=== PATIENT | female | born 1945 | race Caucasian/White ===

== ENCOUNTER → 2017-02-11 | Outpatient (CLI) | payer OTHER | LOC: FIMAGING 07:44 | PROVIDERS: ATTEND Internal Medicine Hematology & Oncology | DX: Z12.31 Encounter for screening mammogram for malignant neoplasm of breast (principal); Z85.3 Personal history of malignant neoplasm of breast | CPT/HCPCS: G0202 ==

== ENCOUNTER 2017-12-13 09:45 | Emergency (ER) | payer OTHER ==
--- NOTE | 2017-12-13 10:57 | EDPHY ---
H & P Stated Complaint: constipation abd pain - Personal History Current Tetanus/Diphtheria Vaccine: Unsure Current Tetanus Diphtheria and Acellular Pertussis (TDAP): Unsure - Medical/Surgical History Hx Asthma: No Hx Chronic Respiratory Disease: No Hx Diabetes: No Hx Cardiac Disease: No Hx Renal Disease: No Hx Cirrhosis: No Hx Alcoholism: No Hx HIV/AIDS: No Hx Splenectomy or Spleen Trauma: No Other PMH: ostoarthritis , hypothyroid, psoriasis, breast CA lumpectomy, radiation, chemo, gallbladder removed 2009, - Social History Smoking Status: Never smoked Time Seen by Provider: 12/13/17 10:23 HPI/ROS: CHIEF COMPLAINT: Abdominal pain x6 months HISTORY OF PRESENT ILLNESS: 72-year-old female arrives via private vehicle complaining of 6 months of multiple symptoms. She describes recurrent episodes of constipation, recurrent episodes of bilateral upper abdominal pain with intermittent radiation to her right shoulder and scapula, pleuritic lower chest pain and upper abdominal pain. She has seen her PCP Dr. Deanna Trotter for this and has been seen by GI of the [facility] as recently as 1 week ago for similar complaints. She is concerned about possible cardiac pathology, possible pulmonary pathology. She denies: Fever, chills, back or flank pain, peripheral paresthesia, weakness , numbness, incontinence, chest pain, dyspnea urinary abnormality, melena hematochezia, nausea or vomiting, syncope or near syncope. PRIMARY CARE PROVIDER: Dr. Deanna Salter REVIEW OF SYSTEMS: A ten point review of systems was performed and is negative with the exception of the items mentioned in the HPI PAST MEDICAL & SURGICAL HISTORY: Lumpectomy, secondary to history of breast cancer 20 years ago. Cholecystectomy. SOCIAL HISTORY: nonsmoker PHYSICAL EXAM (Prior to examination, patient consented to physical exam, hands were washed and my usual and customary physical exam procedures followed) 1) GENERAL: Well-developed, well-nourished, alert and oriented. Appears to be in no acute distress. 2) HEAD: Normocephalic, atraumatic 3) HEENT: Pupils equal, round, reactive to light bilaterally. Sclera anicteric. Nasopharynx, oropharynx, clear, no lesions. Ears bilaterally with normal tympanic membranes. 4) NECK: Full range of motion, no meningeal signs. 5) LUNGS: Clear auscultation bilaterally, no wheezes, no rhonchi, no retractions. 6) HEART: Regular rate and rhythm, no murmur, no heave, no gallop. 7) ABDOMEN: No guarding, tender to palpation bilateral upper quadrants, no pulsatile or palpable mass, negative McBurney's, negative Ca's, negative Rovsing's, negative peritoneal sign, 8) MUSCULOSKELETAL: Moving all extremities, no focal areas of tenderness, no obvious trauma. No peripheral edema or discoloration. 9) BACK: No CVA tenderness, no midline vertebral tenderness, no fluctuance, no step-off, no obvious trauma, no visual or palpable abnormality. Patella and Achilles reflexes are intact to bilateral strength 5/5. No rash no lesions no vesicles. Full equal sensation along the thoracic vertebrae 10) SKIN: No rash, no petechiae. 11) Psychiatric: Patient is oriented X 3, there is no agitation. DIFFERENTIAL DIAGNOSIS: In no particular order, including but not limited to biliary colic, cholecystitis, peptic ulcer disease, pancreatitis, and gastroenteritis. This is a partial list of diagnoses considered. These considerations are based on history, physical exam, past history and reassessment. (Ozzy Lugo) Constitutional: Initial Vital Signs Temperature (C) 36.8 C 12/13/17 10:08 Heart Rate 97 12/13/17 10:08 Respiratory Rate 16 12/13/17 10:08 Blood Pressure 173/114 H 12/13/17 10:08 O2 Sat (%) 94 12/13/17 10:08 O2 Delivery Mode Room Air Allergies/Adverse Reactions: No Known Allergies Allergy (Unverified 12/13/17 10:05) Home Medications: Medication Instructions Recorded Cholecalciferol Vit D3 [Vitamin D3 2,000 units PO DAILY 11/23/14 (*)] Herbals/Supplements -Info Only 1 ea PO DAILY 11/23/14 Levothyroxine [Synthroid 125 mcg 125 mcg PO DAILY06 11/23/14 (*)] Multivitamins [Multivitamin (*)] 1 each PO DAILY 11/23/14 [place]-3 Fatty Acids [Fish Oil 1000 1,000 mg PO DAILY 11/23/14 mg (*)] Potassium Chloride [K-Tab ER] 20 meq PO DAILY 11/23/14 traZODone [traZODone 150MG (*)] 150 mg PO HS 11/23/14 Acetaminophen [Tylenol 325mg (*)] 325 - 650 mg PO Q6 PRN #60 tab 12/14/14 Docusate Sodium [Colace 100 MG (*)] 100 mg PO BID #60 cap 12/14/14 Miralax 17 gm (*) 12/13/17 Medical Decision Making - Diagnostics EKG Interpretation: 12 lead EKG is interpreted in Trace master View by emergency department physician. (Beatris Carver) Imaging Results: Images reviewed myself (Ozzy Lugo) ED Course/Re-evaluation: 10:55 a.m.: Will obtain diagnostic studies on this patient including LFTs, lipase, troponin, EKG, D-dimer, chest x-ray, more than likely CT imaging of the abdomen and pelvis. Care of patient under supervision of secondary Supervising physician Dr Carver with whom I discussed case. 11:30 a.m.: Patient describes pleuritic chest pain, has elevated D-dimer of 1.98. Recommended CT imaging of the chest. Indications risks benefits discussed with patient and she consents. Patient was re-evaluated with serial examinations. Unfortunately, results of imaging showing multilevel vertebral metastatic disease with pathologic fracture at the T11 level with no definitive spinal impingement, no neurologic deficits on examination. She is also noted to have scapular metastatic lesions. No pulmonary embolus. No intra-abdominal pathology. I discussed this with the patient and her , had a lengthy discussion with the 2 of them. The news of the metastatic disease was surprising and upsetting for the patient to hear. Subsequently consulted with on-call oncology Dr. Armijo. Today is Thursday of the weekend. Dr. Armijo recommended patient follow up in the office this week. Specifically regarding the patient's T11 pathologic fracture, there are no neurologic deficits noted on examination. I do not think that emergent MRI is indicated today ; however, this will more than likely need to happen on outpatient basis. Definitely in the meantime I had a lengthy discussion with the patient if she develops neurologic deficits, weakness, incontinence, she needs to return to the ER immediately for re- evaluation. Recommended no heavy lifting, pushing pulling and similar. She feels comfortable being discharged. All questions and concerns addressed by myself. (Ozzy Lugo) The patient was evaluated and managed by the physician educational/development assistant. I have reviewed this chart and I agree with the findings and plan of care as documented , as indicated by my signature. I am the secondary supervising physician. I was made aware of the patient's condition and the result of her evaluation throughout her stay in the emergency department. The physician's educational/development assistant, Torsten nunez, had established a good rapport with the patient and I am comfortable with him relaying the news about her metastatic disease to the patient and her . 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 Referrals: Deirdre Godinez MD [Medical Doctor] - 2-3 days, call for appt.
--- NOTE | 2017-12-13 11:08 | CPEKG ---
Heart Rate: 67 RR Interval: 896 P-R Interval: 156 QRSD Interval: 76 QT Interval: 412 QTC Interval: 435 P [place]: 52 QRS [place]: -26 T Wave [place]: 44 EKG Severity - BORDERLINE ECG - EKG Impression: SINUS RHYTHM EKG Impression: BORDERLINE LEFT AXIS DEVIATION EKG Impression: BORDERLINE R WAVE PROGRESSION, ANTERIOR LEADS Electronically Signed By: Beatris Carver 13-Dec-2017 16:43:20
[2017-12-13 11:10] LABS: PLATELET COUNT 239 10^3/uL (150-400)
[2017-12-13] MEDS ORDERED: IOPAMIDOL (ISOVUE 370) 100 ML BTL IV ONE (11:38)
[2017-12-13 14:24] VITALS: BP 143/67
== END 2017-12-13 14:23 | disposition home or self-care (01) ==
DX: C72.0 Malignant neoplasm of spinal cord (principal); C40.00 Malignant neoplasm of scapula and long bones of unspecified upper limb; Z85.3 Personal history of malignant neoplasm of breast
CPT/HCPCS: 71046; 71275; 74177; 93005; 99285; Q9967

== ENCOUNTER 2017-12-15 19:31 | Inpatient (IN) | payer OTHER ==
--- NOTE | 2017-12-15 20:01 | EDPHY ---
HPI/HX/ROS/PE/MDM Narrative: CHIEF COMPLAINT: Metastatic cancer to spine HPI: This patient is a 72 year old female with history of breast cancer with known bone metastases. She presents at the request of her oncologist, Dr. Walton. MRI thoracic spine this evening showed cord compression at T10 related to an expanded vertebral body and right pedicle. Dr. Walton requests IV dexamethasone for this patient as well as admission and a consult with neurosurgery tomorrow. The patient was evaluated in this emergency department two days ago, 12/13/17, for multiple complaints including abdominal, chest, and shoulder pain, and was discovered at that time to have metastatic disease. Currently, the patient feels anxious. She denies any neurologic deficits. She has had persistent upper abdominal pain, back pain, and pleuritic pain and generally takes tramadol for this. She has no further complaints at this time and is aware of the plan for admission. REVIEW OF SYSTEMS: Aside from elements discussed in the HPI, a comprehensive 10-point review of systems was reviewed and is negative. PMH: History of breast cancer 20 years ago. SOCIAL HISTORY: . Works as a nanny. Oncologist: Dr. Godinez. PHYSICAL EXAM: General:Patient is alert, in no acute distress. ENT:Eyes are normal to inspection. ENT inspection normal. Neck: Normal inspection. Full range of motion. Respiratory:No respiratory distress. Breath sounds normal bilaterally. Cardiovascular: Regular rate and rhythm. Strong peripheral pulses. Normal cap refill. Abdomen:The abdomen is nontender to palpation. There are no peritoneal signs. There are normal bowel sounds. Back: Normal to inspection. No tenderness to palpation. Skin: Normal color. No rash. Warm and dry. Extremities: Normal appearance. Full range of motion. Neuro: Oriented x3. Normal motor function. Normal sensory function. ED Course: 72 y/o female with history of metastatic breast cancer presents for admission and steroid administration. She is neurologically intact on exam and has no complaints other than pain. MRI thoracic spine read by Dr. Sousa this evening shows cord compression at T10 related to an expanded vertebral body and right pedicle. Plan for consult with neurosurgery, IV steroids, and admission. Plan for labs including CBC, chemistries. 20:[address] Chan, neurosurgeon. He will consult. Plan to administer 10mg IV Decadron and 50mg PO Tramadol for symptom relief. Administered 1L IV NS. 21:[address] Davidson, hospitalist. He accepts admission for spine metastasis. - Data Points Laboratory Results: Laboratory Results 12/15/17 20:15 12/15/17 20:15 12/15/17 12/15/17 20:15 20:15 WBC 5.96 10^3/uL 10^3/uL (3.80-9.50) RBC 4.47 10^6/uL 10^6/uL (4.18-5.33) Hgb 13.1 g/dL g/dL (12.6-16.3) Hct 37.8 % L % (38.0-47.0) MCV 84.6 fL fL (81.5-99.8) MCH 29.3 pg pg (27.9-34.1) MCHC 34.7 g/dL g/dL (32.4-36.7) RDW 13.1 % % (11.5-15.2) Plt Count 226 10^3/uL 10^3/uL (150-400) MPV 9.4 fL fL (8.7-11.7) Neut % (Auto) 45.0 % % (39.3-74.2) Lymph % (Auto) 34.2 % % (15.0-45.0) [place] % (Auto) 15.3 % H % (4.5-13.0) Eos % (Auto) 4.5 % % (0.6-7.6) Baso % (Auto) 0.8 % % (0.3-1.7) Nucleat RBC Rel Count 0.0 % % (0.0-0.2) Absolute Neuts (auto) 2.68 10^3/uL 10^3/uL (1.70-6.50) Absolute Lymphs (auto) 2.04 10^3/uL 10^3/uL (1.00-3.00) Absolute Monos (auto) 0.91 10^3/uL H 10^3/uL (0.30-0.80) Absolute Eos (auto) 0.27 10^3/uL 10^3/uL (0.03-0.40) Absolute Basos (auto) 0.05 10^3/uL 10^3/uL (0.02-0.10) Absolute Nucleated RBC 0.00 10^3/uL 10^3/uL (0-0.01) Immature Gran % 0.2 % % (0.0-1.1) Immature Gran # 0.01 10^3/uL 10^3/uL (0.00-0.10) Sodium 138 mEq/L mEq/L (135-145) Potassium 3.6 mEq/L mEq/L (3.3-5.0) Chloride 98 mEq/L mEq/L (97-110) Carbon Dioxide 27 mEq/l mEq/l (22-31) Anion Gap 13 mEq/L mEq/L (8-16) BUN 23 mg/dL mg/dL (7-23) Creatinine 0.9 mg/dL mg/dL (0.6-1.0) Estimated GFR > 60 Glucose 98 mg/dL mg/dL (70-100) Calcium 10.4 mg/dL mg/dL (8.5-10.4) Medications Given: Discontinued Medications Dexamethasone (Decadron Injection) 10 mg IVP EDNOW ONE Stop: 12/15/17 20:16 Last Admin: 12/15/17 20:24 Dose: 10 mg Sodium Chloride (Ns) 1,000 mls @ 0 mls/hr IV EDNOW ONE; Wide Open PRN Reason: Protocol Stop: 12/15/17 20:29 Last Admin: 12/15/17 20:33 Dose: 1,000 mls Tramadol HCl (Ultram) 50 mg PO EDNOW ONE Stop: 12/15/17 20:29 Last Admin: 12/15/17 20:34 Dose: 50 mg General Time Seen by Provider: 12/15/17 19:55 Initial Vital Signs: Initial Vital Signs Temperature (C) 36.8 C 12/15/17 19:40 Heart Rate 77 12/15/17 19:40 Respiratory Rate 20 12/15/17 19:40 Blood Pressure 140/11 H 12/15/17 19:40 O2 Sat (%) 93 12/15/17 19:40 O2 Delivery Mode Room Air Allergies/Adverse Reactions: No Known Allergies Allergy (Unverified 12/13/17 10:05) Home Medications: Medication Instructions Recorded Cholecalciferol Vit D3 [Vitamin D3 2,000 units PO DAILY 11/23/14 (*)] Herbals/Supplements -Info Only 1 ea PO DAILY 11/23/14 Levothyroxine [Synthroid 125 mcg 125 mcg PO DAILY06 11/23/14 (*)] [place]-3 Fatty Acids [Fish Oil 1000 1,000 mg PO DAILY 11/23/14 mg (*)] Potassium Chloride [K-Tab ER] 20 meq PO DAILY 11/23/14 traZODone [traZODone 150MG (*)] 150 mg PO HS 11/23/14 Polyethylene Glycol 3350 [Miralax 17 gm PO DAILY PRN 12/13/17 17 gm (*)] Naproxen Sodium [Aleve 220 MG (*)] 440 mg PO BID 12/15/17 Tramadol HCl 50 mg PO Q6 PRN 12/15/17 Departure - Departure Disposition: [facility] Clinical Impression: Spine metastasis Condition: Good Report Scribed for: Dom Mcallister Report Scribed by: Natividad Perkins Date of Report: 12/15/17 Time of Report: 20:03 Physician Review and Approval Statement: Portions of this note were transcribed by an ED scribe. I personally performed the history, physical exam, and medical decision making; and confirm the accuracy of the information in the transcribed note.
[2017-12-15] MEDS ORDERED: DEXAMETHASONE 10 MG/ML VIAL IVP ONE (20:15)
[2017-12-15] MEDS ORDERED: traMADol 50 MG TAB PO ONE (20:28)
[2017-12-15] MEDS ORDERED: NS 1,000 ML IV ONE (20:28)
[2017-12-15 20:37] LABS: PLATELET COUNT 226 10^3/uL (150-400)
[2017-12-15] MEDS ORDERED: LORazepam 0.5 MG TAB PO PRN (22:34)
[2017-12-15] MEDS ORDERED: HYDROCODONE/APAP 5/325 TAB PO PRN (22:34)
[2017-12-15] MEDS ORDERED: diphenhydrAMINE 25 MG CAP PO PRN (22:34)
[2017-12-15] MEDS ORDERED: ONDANSETRON 4 MG/2 ML VIAL IVP PRN (22:34)
[2017-12-15] MEDS ORDERED: NS 1,000 ML IV SCH (22:45)
[2017-12-16] MEDS: DEXAMETHASONE 4 MG/ML VIAL IVP SCH ×3 (01:48→14:37)
[2017-12-16] MEDS: traMADol 50 MG TAB PO PRN ×2 (02:42→08:28)
--- NOTE | 2017-12-16 03:18 | GHP ---
[f rep st] HISTORY AND PHYSICAL DATE OF ADMISSION: 12/15/2017 SOURCE: Patient provides history. Appears reliable. EMR was reviewed and case discussed with miguel fields hospitalist. CHIEF COMPLAINT: Back pain and metastatic breast cancer. HISTORY OF PRESENT ILLNESS: This is a very pleasant 72-year-old female with a past medical history s ignificant for hypothyroidism, insomnia, and a previously remote history of breast cancer who was in remission for 20 years, who presents to the emergency department for the second time this week per he r oncologist for finding of a T10 cord compression edema. Patient was recently seen in the emergency department a few days ago with complaints of increasing abdominal pain and diffuse bony pain. Regina wei was found to have metastatic disease and had follow up with her oncologist today. She underwent M RI of thoracic spine with findings concerning for cord compression T10. Patient denies any numbness, tingling. No focal deficits. She denies any fevers, chills, chest pain, palpitations, cough, short ness of breath. She continues to have abdominal bloating and constipation issues but reports that he r pain is controlled at this time. She did receive a dose of tramadol in the emergency department an d reports that this did alleviate some of her pain. She is hesitant to consider use of large doses o f narcotics but reports that she is relatively comfortable with the dose of tramadol and has not had any neurologic symptoms. REVIEW OF SYSTEMS: Negative except as noted above. ALLERGIES: No known drug allergies. HOME MEDICATIONS: As per EMR, trazodone 50 mg p.o. at at bedtime, potassium chloride 20 mEq p.o. isaiah ly, fish oil 1000 mg p.o. daily, multivitamin 1 tab p.o. daily, MiraLAX 17 g p.r.n., levothyroxine 12 5 mg p.o. daily, docusate 100 mg p.o. b.i.d., vitamin D3 2000 units p.o. daily, Tylenol p.r.n., probi otic p.o. daily. PAST MEDICAL HISTORY: Significant for remote history of breast cancer, status post a lumpectomy 20 y ears ago, hypothyroidism, insomnia. PAST SURGICAL HISTORY: Lumpectomy, cholecystectomy, left total hip arthroplasty 2014. FAMILY HISTORY: Mother and father with history of hypertension. Father at a young age 57 a fter his fifth DE. First was at age 37. Mother lived to 80 years old with suspected lung cancer, an d she declined any further eval. Sister with history of ovarian cancer. Paternal aunt with breast c ancer. Patient with 3 children, 3 grandchildren, all of whom are healthy. SOCIAL HISTORY: Patient is . She lives with her . She is currently employed as a [employer]. She drinks 1 to 2 glasses of wine per week. Denies any illicit drug use. No marijuana use. CODE STATUS: Full but patient would not want to be on prolonged life support. PHYSICAL EXAMINATION: VITAL SIGNS: Upon arrival to the emergency department, blood pressure 140/101 , heart rate 77, respiratory rate 20, O2 sats 93% on room air, temperature 36.8. Current vitals avai lable: Blood pressure 116/87, heart rate 78, respiratory rate 16, O2 saturation 94% on room air, tem perature 37. GENERAL: No acute distress. Very pleasant, obese female is lying quietly in bed resti ng. HEAD: Normocephalic, atraumatic. EYES: Extraocular muscles are intact. Pupils equal, round, react to light bilaterally and symmetric. No scleral icterus or conjunctival injection. ENT: Mucou s membranes appear moist. No oropharyngeal erythema or exudates. Dentition intact. NECK: Supple. Trachea midline. CV: Regular rate and rhythm, slightly distant heart sounds. No murmurs, rubs, or gallops appreciated. No chest wall tenderness to palpation. RESPIRATORY: Lungs clear to auscultat ion bilaterally. No wheezes, rales, or rhonchi appreciated. Slightly diminished at the bases. ABDO MEN: Obese, soft, but full. Nondistended. Positive bowel sounds. No tenderness to palpation. No rebound, guarding, or masses appreciated. : No suprapubic tenderness to palpation. No [place] cath eter in place. EXTREMITIES: Patient without any cyanosis, clubbing, or edema. 1+ pedal pulses bila terally and symmetric. MUSCULOSKELETAL: Strength grossly intact upper and lower extremities 5/5. P atient sits up independently. NEURO: Cranial nerves 2 through 12 intact, symmetric bilaterally. Pa lee is awake, alert, and oriented x4. PSYCH: Thought process, content, and questions are all appr opriate. Patient is not anxious. She is cooperative and in fairly good spirits. LABORATORY STUDIES: WBC is 5.96, H and H 13.1, 37.8, MCV 84.6, platelet count 226, no bands. Sodium is 138, potassium 3.6, chloride 98, CO2 is 27, anion gap 13, BUN 23, creatinine 0.9, GFR greater luigi n 60, glucose 98, calcium is 10.4. IMAGING STUDIES: MRI thoracic spine done 12/14/2017 showing diffuse marrow replacement, T10 vertebra l body which is moderately compressed. Posterior expansion of the vertebral body into the neural can al. Extension of the right pedicle. Virtually no CSF remains medially or laterally. The spine is d iffusely involved with metastatic disease. Only other area of soft tissue encroachment in the neural canal is C7 and very mild posterior bulging of vertebral body in the neural canal. No abnormal enha ncement of edema within thoracic cord. Imaging from 12/13/2014 reviewed. Chest x-ray negative for a cute cardiopulmonary process, moderate T11 compression fracture, multiple healed left-sided rib fract ures, surgical clips in the right axilla. CT abdomen and pelvis: Pleural-based nodularity over the hemidiaphragm bilaterally. Gallbladder meredith gically absent. Liver, spleen normal. No retroperitoneal lymphadenopathy. No masses or free fluid in the pelvis. Lucent lesions in the iliac wings bilaterally. Metastatic involvement in the right s jeff of L5-T11. Also noted with extension of tumor in the thoracic spinal canal. CTA of the chest negative for PE with features of breast cancer, metastatic disease, right scapular m etastases identified, tumor extension, thoracic spinal canal, T11. ASSESSMENT/PLAN: 72-year-old female with past medical history significant for breast cancer treated with lumpectomy remotely, hypothyroidism, insomnia, presents to the emergency department following ou tpatient MRI noting T10 cord compression. 1. Cord compression at T10 as above: Patient has received 10 mg of Decadron in the emergency depart ment. Will plan to continue with scheduled steroid therapy. At this time, patient is asymptomatic. Neurosurgery was consulted from the emergency department, and they will evaluate the patient in the morning. We have made the patient n.p.o. pending their recommendations. 2. Metastatic disease suspicious given history of breast cancer, but patient has not yet been schedu led for biopsy. Oncology will be consulted in the morning to assist with further recommendations and planning. 3. Pain related to bony metastases: Patient is tolerating with tramadol quite well. We will contin ue this as per patient preference on medications. Will leave morphine available p.r.n. as well. 4. Chronic medical issues: Hypothyroidism - we will plan to resume her levothyroxine replacement; a nd chronic insomnia - continue with trazodone. 5. Fluid, electrolyte, nutrition: Patient appears well hydrated at this point, and she was made n.p .o. but is noting that she has to void frequently. Will turn down IV fluids to TKO. Electrolytes wi ll be monitored and replaced if needed. Advance diet after patient has been evaluated by Neurosurger y. 6. Prophylaxis: Sequential compression devices, holding anticoagulation pending neurosurgical evalu ation. 7. Code status is full. Patient would not want prolonged life support. DISPOSITION: Patient has been admitted to inpatient status on the Oncology floor given severity of f indings and anticipate greater than 2 midnights' stay for patient's condition and stabilization and p otentially additional workup. /[id number]/MODL
[2017-12-16] MEDS ORDERED: LACTULOSE 20 GM/30 ML UDCUP PO PRN (03:41)
[2017-12-16] MEDS ORDERED: BISACODYL 10 MG SUPP PR PRN (03:41)
[2017-12-16] MEDS ORDERED: MAGNESIUM HYDROXIDE 30 ML UDCUP PO PRN (03:41)
[2017-12-16] MEDS ORDERED: POLYETHYLENE GLYCOL 3350 17 GM PKT PO PRN ×2 (03:41→18:35)
[2017-12-16 04:42] LABS: PLATELET COUNT 213 10^3/uL (150-400)
--- NOTE | 2017-12-16 05:29 | PDMN ---
Medical Necessity Medical necessity: Pt meets INPT criteria per and [facility] Medical Oncology [facility] ( severe neurologic finding: new T10 cord compression requiring IV Decadron q6hr, metastatic disease suspicious given hx of breast cancer).
[2017-12-16] MEDS: SENNOSIDES/DOCUSATE SODIUM TAB PO SCH ×2 (08:23→21:13)
--- NOTE | 2017-12-16 11:55 | GCON ---
[f rep st] CONSULTATION NEUROSURGICAL CONSULTATION CHIEF COMPLAINT: Back pain. HISTORY OF PRESENT ILLNESS: The patient is a 72-year-old female who had a history of a lumpectomy for breast cancer, followed by chemo and radiation approximately 20 years ago. She was in her normal state of health, but did notice in approximately June 2017 some fluctuating episodes of back pain. Over the last week, she has noticed worsening thoracic back pain with some pain radiating towards her ribs. She was admitted to [facility]. Imaging studies of her thoracic spine were obtained. This showed multiple lesions consistent with metastatic disease with a T10 compression fracture and cord compression. Neurosurgical consultation was requested. She currently complains of thoracic back pain with some pain that radiates towards her ribs. She feels like her legs are strong, and she denies any leg heaviness. She is not having any leg weakness, paresthesias, ataxia, or bowel or bladder problems. PAST MEDICAL HISTORY: 1. Breast cancer. 2. Lumpectomy. 3. Hypothyroidism. 4. Insomnia. MEDICATIONS: Medications prior to admission are trazodone, potassium chloride, fish oil, multivitamin, MiraLAX, levothyroxine, docusate, vitamin D, and Tylenol. ALLERGIES: No known drug allergies. FAMILY HISTORY: Her father of a myocardial infarction. Her mother lived to be 80 but of suspected lung cancer. SOCIAL HISTORY: Patient is , with grown children. She denies smoking and drug use. She does drink alcohol socially. REVIEW OF SYSTEMS: Negative. PHYSICAL EXAM: GENERAL: Patient is a 72-year-old female lying in bed, no apparent distress. HEAD, EYES, EARS, NOSE, AND THROAT: Negative to drainage. EXTREMITIES: Stevens, warm and dry. NEUROLOGICAL: Patient is awake, alert, oriented x4. Pupils equal, round, and reactive to light. Extraocular motions are intact. There is no evidence of facial droop. Tongue and uvula are midline. Spinal accessory muscles are intact. Her motor strength is 5/5 in her arms and legs. Her sensation is grossly intact to light touch in her arms and legs. Deep tendon reflexes are 1/4 in the bilateral biceps, triceps, brachioradialis, patellar, and Achilles. There is a negative Apolinar's with no clonus. DIAGNOSTIC STUDIES: An MRI of the thoracic spine shows preservation of the sagittal alignment. There are multiple areas of postcontrast enhancement through most of the vertebral bodies within the thoracic spine suspicious for metastatic disease. At T10, there is a compression deformity with approximately 30% loss of height. There appears to be tumor involvement within most of the vertebral body but predominantly on the right side, including the right pedicle. There is moderate stenosis at this level. IMPRESSION: This is a 72-year-old female with likely widely metastatic breast cancer and a T10 compression deformity with moderate stenosis. She is neurologically intact. PLAN: All of the above issues were discussed in detail with the patient. This patient was seen and examined with Dr. Omar Chan present. At this point in time, she is neurologically intact with no myelopathic symptoms consistent with spinal cord stenosis. At this point, we would consider systemic treatment of her presumed metastatic disease with chemotherapy and radiation per Oncology and Radiation Oncology. She does not need any type of thoracic bracing. If this fracture does progress or if she does become symptomatic to the stenosis, then we can consider surgical intervention at that point in time. Surgery at this point would likely just delay her treatment with chemo and radiation, which is what she needs most. We will continue to follow her for now. Please call with any neurological changes. NEUROSURGERY STAFF: I have seen and examined the patient and discussed the case with the PA. I agree with the note above. Omar Chan MD /[id number]/MODL MTDD
--- NOTE | 2017-12-16 12:00 | GCON ---
[f rep st] CONSULTATION INPATIENT ONCOLOGY CONSULTATION DATE OF CONSULTATION: 12/16/2017 REFERRING PHYSICIAN: July Rosario MD OUTPATIENT ONCOLOGIST: Dr. Deirdre Godinez REASON FOR CONSULTATION: Metastatic breast cancer with cord compression. HISTORY OF PRESENT ILLNESS: The patient is a 72-year-old woman with newly diagnosed metastatic breas t cancer. She had stage I breast cancer back in 1996, on the right side. She had a lumpectomy and a xillary node dissection, followed by postlumpectomy radiation therapy, 4 cycles of adjuvant Adriamyci n and Cytoxan, and then tamoxifen for 5 years. Since that time, she has been free of disease. Over the past few weeks, she developed some vague bone pain, including pain radiating from the middle of t he back around to the front. She was seen in the emergency department on December 13. CT angiogram was negative for pulmonary emboli sm, but did show multiple bone metastases in the thoracic vertebrae. There was some nodularity of th e pleural surface of both hemidiaphragms, as well as some mediastinal and right infrahilar adenopathy . The nodules in the right hemidiaphragm were up to 2.7 cm in size. The abdominal CT did not show a ny evidence of other visceral disease. She then saw Dr. Godinez yesterday who sent her for a stat thoracic MRI. This revealed a tumor at T10 compressing the spinal cord. She was having pain, but no neurological symptoms. She was admitted t o the [facility] and received Decadron and is being seen by Neurosurgery this morning. She says that s he feels somewhat better and again does not have any numbness, pain, or bowel or bladder difficulties right now. PAST MEDICAL HISTORY: Otherwise unremarkable. CURRENT MEDICATIONS: Include dexamethasone 4 mg IV q.6 hours and tramadol. ALLERGIES: No known drug allergies. FAMILY HISTORY: She has some family members with breast cancer, though she tested negative for BRCA mutations in 1996. SOCIAL HISTORY: She does not smoke cigarettes. She drinks alcohol rarely. She lives with her [facility]. REVIEW OF SYSTEMS: Aside from pertinent positives in HPI, 14-point review of systems is negative. PHYSICAL EXAMINATION: VITAL SIGNS: Temperature 36.3, blood pressure 156/97, heart rate 80, ox satur ation 90% on room air. GENERAL: She was well appearing in no acute distress. HEENT: Sclerae anict hodan. Oropharynx clear. NECK: Supple without lymphadenopathy. LUNGS: Clear to auscultation bilat erally. CARDIAC: Regular rate and rhythm. No murmurs, gallops, rubs. ABDOMEN: Normoactive bowel sounds. Nontender. EXTREMITIES: Without edema. NEUROLOGIC: She is alert and oriented x3. Sensat ion and gait were normal. LABORATORY DATA: White count 3.53, hemoglobin 12.6, platelets of 213. Basic metabolic panel was nor mal. IMPRESSION: This is a 72-year-old woman with a remote history of ER positive breast cancer, now pres ents with diffuse osseous metastases and some pleural disease as well. This almost certainly represe nts a late recurrence of her breast cancer. The most acute issue right now is potential cord diana celine right now at T10. She was seen by Dr. Chan of Neurosurgery and discussed the case at length with him. She feels that since she is asymptomatic, the best option would be radiation therapy, possibly followed by thermoabl ation and kyphoplasty. She continues to have pain after radiation. I will consult Radiation Oncolog y to see her later this week. We also discussed that this is not a curable disease at this point, bu t one for which effective treatments are available. Likely the first-line therapy given the predomin antly bone disease would be an antiestrogen with Ibrance. It would be best to confirm the biomarkers with a soft tissue biopsy, but maybe only bone lesions are accessible. We will try to get these tests done while she is in the hospital and then have her see Dr. Godinez as an outpatient. /[id number]/MODL
[2017-12-16 12:48] LABS: INR 0.99 (0.83-1.16); PROTIME(PATIENT) 13.3 SEC (12.0-15.0)
[2017-12-16] MEDS ORDERED: FLUMAZENIL 0.5 MG/5 ML MDV IVP PRN (14:48)
[2017-12-16] MEDS ORDERED: fentaNYL 100 MCG/2 ML INJ IVP PRN (14:48)
[2017-12-16] MEDS ORDERED: NALOXONE HCL 0.4 MG/ML INJ IVP PRN (14:48)
[2017-12-16] MEDS ORDERED: MIDAZOLAM 2 MG/2 ML VIAL IVP PRN (14:48)
[2017-12-16] MEDS ORDERED: GADOBUTROL 10 ML VIAL IVP ONE (15:21)
--- NOTE | 2017-12-16 15:28 | ASMTCMCOM ---
CM Note CM Note Notes: Pt admitted for pain. Biopsy to be done. Pt will start radiation. Pt's DC needs are unclear. CM will continue to follow. Date Signed: 12/16/2017 03:27 PM Electronically Signed By:Catherine Wilkerson LCSW
--- NOTE | 2017-12-16 16:24 | PDPROPOC ---
Sedation Plan of Care Sedation Plan of Care: vital signs stable, mental status noted, patient educated of risks, benefits, alternatives, patient can tolerate sedation ASA Classification: ASA 2 Planned drugs: fentanyl, midazolam Mallampati Score: Class 2 Mallampati Reference Image:
[2017-12-16] MEDS ORDERED: LIDOCAINE 1% 300 MG/30 ML SDV ONE (16:26)
--- NOTE | 2017-12-16 16:26 | PDGENHP ---
History & Physical Chief Complaint: metastatic disease History of Present Illness: h/o BrCA, no p/w left pleural nodules, path vertebral fracture and lytic/sclerotic bone mets elsewhere including right iliac crest. Relevant Physical Exam: well developed, no acute distress. airway assessed. Cardiorespiratory Assessment: nl wob, rrr
--- NOTE | 2017-12-16 17:32 | PDRADPN ---
Radiology Procedure Note Date of Procedure: 12/16/17 Radiologist: Isidoro Stubbs Anesthesia: IV Sedation Pre-op Diagnosis: suspected metastatic brca Post-op Diagnosis: same Indication: diagnosis, biomarkers Procedure: CT guided core biopsy of right iliac crest metastasis Finding(s): 11G/13G coaxial biopsy of anterior right iliac crest. Inf/Abcess present in the surg proc area at time of surgery?: No Complications: none Specimen(s): Four 11G cores submitted in formalin
[2017-12-16] MEDS ORDERED: oxyCODONE IR 5 MG TAB PO PRN (18:03)
--- NOTE | 2017-12-16 18:33 | HOSPPROG ---
Hospitalist Progress Note Assessment/Plan: Prolonged service in addition to the time spent on the initial History & Physical by Dr. July Rosario, direct patient care, [id number] with patient at bedside with her , for 30 min (10:45 a.m. to 11:15 a.m.), addressing the following: -physical exam demonstrates 5/5 motor strength bilateral lower extremities, sensation is intact in the bilateral lower extremities, heart rhythm is regular , lungs are clear to auscultation bilaterally, she has some pain located in the right iliac crest but it is not tender to palpation and there is no reproducible tenderness over the paraspinal muscles from the cervical area to the lumbar spine, abdomen is soft, nontender nondistended with bowel sounds being present -her nausea is currently well managed, continue supportive medications as needed , continue IV fluids while she is NPO -patient's back pain is currently well managed with the tramadol, but given that her brain MRI has demonstrated intracranial metastases, she is at risk for seizures, and given that tramadol lowers the seizure threshold, I would recommend utilizing oxycodone immediate release for pain management moving forward -back pain has significantly improved with use of IV steroids, adjust from IV dexamethasone to dexamethasone 8 mg orally twice daily to be tapered in the outpatient setting after she begins radiation treatment -patient underwent brain MRI today which did demonstrate some intracranial metastases which will be further discussed with the patient tomorrow specifically as it pertains to radiation treatments -CT biopsy to be performed today, with results to be discussed with patient by her primary oncologist Dr. Deirdre Godinez as an outpatient -patient working with therapy to gauge her physical abilities prior to discharging home -patient will have outpatient radiation oncology through Dr. Rojas Objective: Vital Signs Temp Pulse Resp BP Pulse Ox 36.3 C 61 16 161/75 H 96 12/16/17 18:24 12/16/17 18:24 12/16/17 18:24 12/16/17 18:24 12/16/17 18:24 Laboratory Results 12/16/17 04:34 12/16/17 04:34 12/15/17 12/16/17 12/17/17 05:59 05:59 05:59 Intake Total 1846 650 Output Total 1150 Balance 696 650 PT 13.3 SEC (12.0-15.0) 12/16/17 12:28 INR 0.99 (0.83-1.16) 12/16/17 12:28 ICD10 Worksheet Patient Problems: Problems Problem Status Onset Osteoarthritis of hip Acute Spine metastasis Acute
[2017-12-16] MEDS: DEXAMETHASONE 4 MG TAB PO SCH (21:13)
[2017-12-17] MEDS ORDERED: LEVOTHYROXINE 125 MCG TAB PO SCH (06:00)
[2017-12-17] MEDS: SENNOSIDES/DOCUSATE SODIUM TAB PO SCH (07:46)
[2017-12-17] MEDS: DEXAMETHASONE 4 MG TAB PO SCH (07:46)
[2017-12-17 08:16] VITALS: BP 142/73
--- NOTE | 2017-12-17 08:19 | NEUSURGPN ---
Assessment/Plan: Assessment: 72 yr old female with metastatic breast cancer, T10 compression fracture with moderate stenosis Plan: -Patient is neurologically intact -Thoracic and rib pain improved with steroids -No brace needed, no surgery indicated at this time -Discussed red flag symptoms to watch for -Neurosurgery will sign off, please call us with any change in status/exam -Patient discussed with Dr Chan Subjective: Pain improved with steroids, some pain in right hip from biopsy site Objective: AxO x3 PERRLA 5/5 BUE, BLE Sensation intact to light touch BLE Neuro Check Frequency: per routine Urinary Catheter in Place: No - Physician Discussed Patient with : [facility] Neuro[facility] Physical Exam - Vitals, I&O, Labs I and O 12/16/17 12/17/17 12/18/17 05:59 05:59 05:59 Intake Total 1846 950 Output Total 1150 250 Balance 696 700 Weight 73.936 kg Intake: Oral (ml) 400 300 IV Intake (ml) 200 IV Infused (ml) 1446 450 Ns 1,000 ml @ TKO IV CONT 446 450 LEXI Rx#:[id number] Output: Urine (ml) 1150 250 Toilet 1150 250 Other: Number of Voids Toilet 3 Number of Stools Toilet 1 Vital Signs Temp Pulse Resp BP Pulse Ox 36.5 C 61 17 142/73 H 94 12/17/17 08:00 12/17/17 08:00 12/17/17 08:00 12/17/17 08:00 12/17/17 08:00 Laboratory Results 12/16/17 04:34 12/16/17 04:34 ICD10 Worksheet Patient Problems: Problems Problem Status Onset Spine metastasis Acute Osteoarthritis of hip Acute
[2017-12-17] MEDS ORDERED: CHOLECALCIFEROL VIT D3 2,000 UNITS TAB/CAP PO SCH (09:00)
[2017-12-17] MEDS ORDERED: Herbals/Supplements -Info Only PO SCH (09:00)
[2017-12-17] MEDS ORDERED: POTASSIUM CL 20 MEQ TAB PO SCH (09:00)
[2017-12-17] MEDS ORDERED: OMEGA-3 FATTY ACIDS 1,000 MG CAP PO SCH (09:00)
--- NOTE | 2017-12-17 09:27 | SOAPPROG ---
SOAP Progress Note Assessment/Plan: Assessment: 1. 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 T10 cord compression Plan: - continue with plan for palliative RT (10 fractions) to T10 - will hold off on brain radiotherapy and see if the dural lesions respond to systemic therapy. d/w Dr. Rojas - biopsy pending - if ER+ her2-, will plan to start AI/ibrance following RT - Ok from my perspective to use tramadol for pain if patient prefers; seizure risk is low - continue dexamethasone; Dr. Rojas to taper as outpatient - f/u next week with Dr. Godinez in clinic 35 min spent w/ pt and in coordination of care. d/w patricio rojas and ricardo. 12/17/17 09:24 Subjective: pain OK - was better controlled w/ tramadol. Objective: exam: unchanged Vital Signs Temp Pulse Resp BP Pulse Ox 36.5 C 61 17 142/73 H 94 12/17/17 08:00 12/17/17 08:00 12/17/17 08:00 12/17/17 08:00 12/17/17 08:00 Laboratory Results 12/16/17 04:34 12/16/17 04:34 12/16/17 12/17/17 12/18/17 05:59 05:59 05:59 Intake Total 1846 950 Output Total 1150 250 Balance 696 700 PT 13.3 SEC (12.0-15.0) 12/16/17 12:28 INR 0.99 (0.83-1.16) 12/16/17 12:28 ICD10 Worksheet Patient Problems: Problems Problem Status Onset Spine metastasis Acute Osteoarthritis of hip Acute
--- NOTE | 2017-12-17 11:49 | ASMTCMCOM ---
CM Note CM Note Notes: Pt to DC today and will f/u with outpt oncology. She has no DC needs. Date Signed: 12/17/2017 11:48 AM Electronically Signed By:Catherine Wilkerson LCSW
--- NOTE | 2017-12-17 15:42 | PDDCSUM ---
Discharge Summary Discharge Summary: DISCHARGE SUMMARY FOLLOW-UP ITEMS: Follow-up pain management with outpatient oncologist Metastasis biopsy pending at time of discharge DATE OF ADMISSION: 12/15/2017 DATE OF DISCHARGE: 12/17/2017 DISCHARGE DIAGNOSES: 1. Suspected recurrent metastatic breast cancer with bone, brain, pleural, dural metastases 2. Acute T10 cord compression with vasogenic edema CONSULTATIONS: Oncology, Neurosurgery PROCEDURES / IMAGING: Brain MRI demonstrating dural metastases, isolated 8 mm parenchymal brain metastasis Thoracic spine MRI demonstrating T10 metastasis and cord compression Right iliac metastases biopsy with CT CHIEF COMPLAINT: Acute back pain SUBJECTIVE: Patient is feeling well at time of discharge PHYSICAL EXAM ON DISCHARGE: Systolic blood pressure 120-140, heart 6-70, afebrile overnight, satting well on room air, alert awake oriented x3 HOSPITAL COURSE BY PROBLEM: The patient presented with acute back pain secondary to T10 cord compression with suspected breast cancer metastasis, seen by Neurosurgery and initiated on IV dexamethasone. Patient symptomatically responded and was adjusted to high- dose oral dexamethasone 8 mg twice daily, to be tapered in the outpatient setting by radiation oncologist Dr. Rojas. Patient will be scheduled for outpatient radiation therapy of her bony metastases and will subsequently receive systemic therapy for her dural lesions. Biopsy was performed, as pending at time of discharge. The result to be followed by her primary oncologist and the patient will see Dr. Deirdre Godinez next week. Patient was also prescribed oxycodone for pain control, which the patient agreed to trial, and utilize as needed tramadol if she prefers this method of pain management. She also utilize Senokot and MiraLax to prevent constipation. DISCHARGE MEDICATIONS: Please see official discharge medication reconciliation sheet in chart , dexamethasone 8 mg twice daily, oxycodone 2.5 mg to 5 mg as needed, Senokot S twice daily, MiraLax as needed, tramadol per home dosage if patient prefers. DISCHARGE INSTRUCTIONS: Please follow up with primary oncologist next week and follow outpatient Radiation Oncology schedule as prescribed by Dr. Rojas. TIME SPENT: Greater than 30 minutes were spent on direct patient care, as well as discharge planning and preparation.
== END 2017-12-17 12:02 | disposition home or self-care (01) | DRG 477 ==
LOC: OBSVTOIN 20:52 → F1N 21:55
PROVIDERS: ADMIT Family Medicine; ATTEND Family Medicine
PROC: 0QB43ZX Excision of Right Acetabulum, Percutaneous Approach, Diagnostic (ICD-10-PCS; principal; 2017-12-16 17:30)
DX: C79.51 Secondary malignant neoplasm of bone (principal); G93.6 Cerebral edema; C79.31 Secondary malignant neoplasm of brain; C79.49 Secondary malignant neoplasm of other parts of nervous system; C78.2 Secondary malignant neoplasm of pleura; G95.29 Other cord compression; E86.9 Volume depletion, unspecified; Z85.3 Personal history of malignant neoplasm of breast; E03.9 Hypothyroidism, unspecified; G47.00 Insomnia, unspecified
CPT/HCPCS: 86300-90; 96374; A9585; J1100; J2250; J2310; J2405; J3010

== ENCOUNTER → 2017-12-15 | Outpatient (CLI) | payer OTHER ==
[~2017-12-15] MED LIST: GADOBUTROL 10 ML VIAL IVP ONE
== END ==
LOC: FIMAGING 16:27
PROVIDERS: ATTEND Internal Medicine Hematology & Oncology
DX: G95.20 Unspecified cord compression (principal); C79.51 Secondary malignant neoplasm of bone; C50.411 Malignant neoplasm of upper-outer quadrant of right female breast
CPT/HCPCS: 72157; A9585

== ENCOUNTER → 2017-12-26 | Outpatient (CLI) | payer OTHER | LOC: FIMAGING 08:43 | PROVIDERS: ATTEND Internal Medicine Hematology & Oncology | DX: M84.48XA Pathological fracture, other site, initial encounter for fracture (principal); C50.411 Malignant neoplasm of upper-outer quadrant of right female breast; M85.80 Other specified disorders of bone density and structure, unspecified site; C79.51 Secondary malignant neoplasm of bone; M51.35 Other intervertebral disc degeneration, thoracolumbar region | CPT/HCPCS: 72158; A9585 ==

== ENCOUNTER → 2018-01-04 | Outpatient (CLI) | payer OTHER | LOC: FIMAGING 08:38 | PROVIDERS: ATTEND Radiology Diagnostic Radiology | DX: Z71.89 Other specified counseling (principal); C79.51 Secondary malignant neoplasm of bone; Z85.3 Personal history of malignant neoplasm of breast ==

== ENCOUNTER → 2018-02-13 | Outpatient (CLI) | payer OTHER | LOC: FIMAGING 12:11 | PROVIDERS: ATTEND Internal Medicine Critical Care Medicine | DX: R93.8 Abnormal findings on diagnostic imaging of other specified body structures (principal); R91.1 Solitary pulmonary nodule; Z85.3 Personal history of malignant neoplasm of breast ==

== ENCOUNTER → 2018-04-02 | Outpatient (CLI) | payer OTHER | LOC: FIMAGING 07:44 | PROVIDERS: ATTEND Internal Medicine Hematology & Oncology | DX: C50.411 Malignant neoplasm of upper-outer quadrant of right female breast (principal) | CPT/HCPCS: 70553; A9585 ==

== ENCOUNTER → 2018-06-02 | Outpatient (CLI) | payer OTHER | LOC: FIMAGING 09:35 | PROVIDERS: ATTEND Nurse Practitioner | DX: C50.411 Malignant neoplasm of upper-outer quadrant of right female breast (principal); C79.51 Secondary malignant neoplasm of bone; M48.54XG Collapsed vertebra, not elsewhere classified, thoracic region, subsequent encounter for fracture with delayed healing | CPT/HCPCS: 72157; 72158; A9585 ==

== ENCOUNTER 2018-06-22 11:02 | Day surgery (SDC) | payer OTHER ==
[2018-06-22 11:41] LABS: PLATELET COUNT 261 10^3/uL (150-400)
[2018-06-22 11:48] LABS: INR 0.98 (0.83-1.16); PROTIME(PATIENT) 13.2 SEC (12.0-15.0)
--- NOTE | 2018-06-22 11:53 | PDANEPAE ---
ANE History of Present Illness 72 yo for kyphoplasty ANE Past Medical History - Cardiovascular History Hx Hypertension: No Hx Arrhythmias: No Hx Chest Pain: No Hx Coronary Artery / Peripheral Vascular Disease: No Hx CHF / Valvular Disease: No Hx Palpitations: No - Pulmonary History Hx COPD: No Hx Asthma/Reactive Airway Disease: No Hx Recent Upper Respiratory Infection: No Hx Oxygen in Use at Home: No Hx Sleep Apnea: No - Neurologic History Hx Cerebrovascular Accident: No Hx Seizures: No Hx Dementia: No - Endocrine History Hx Diabetes: No Endocrine History Comment: HyperTHYROIDISM - Renal History Hx Renal Disorders: No - Liver History Hx Hepatic Disorders: No - Neurological & Psychiatric Hx Hx Neurological and Psychiatric Disorders: No - Cancer History Hx Cancer: Yes Cancer History Comment: BREAST CANCER WITH CHEMO AND RADIATION- RIGHT - Congenital Disorder History Hx Congenital Disorders: No - GI History Hx Gastrointestinal Disorders: No - Other Health History Other Health History: PSORIASIS. PSORIATIC ARTHRITIS -"not currently active" - Chronic Pain History Chronic Pain: Yes (ARTHRITIS AND LEFT HIP) - Surgical History Prior Surgeries: RHINOPLASTY AT 17 YEARS OLD. RIGHT BREAST LUMPECTOMY. [place]. Hip Replacement, Left ANE Review of Systems Review of Systems: - Exercise capacity METS (RN): 4 METS ANE Patient History - Allergies Allergies/Adverse Reactions: No Known Allergies Allergy (Verified 02/04/18 18:16) - Home Medications Home medications: home medication list seen and reviewed Home Medications: Cholecalciferol Vit D3 [Vitamin D3 (*)] 2,000 units PO DAILY 11/23/14 [Last Taken 02/04/18 07:00] Levothyroxine [Synthroid 125 mcg (*)] 125 mcg PO DAILY06 11/23/14 [Last Taken ] [place]-3 Fatty Acids [Fish Oil 1000 mg (*)] 1,000 mg PO DAILY 11/23/14 [Last Taken 02/04/18 07:00] Potassium Chloride [K-Tab ER] 20 meq PO DAILY 11/23/14 [Last Taken 02/04/18 07: 00] traZODone [traZODone 150MG (*)] 150 mg PO HS 11/23/14 [Last Taken 02/03/18] Letrozole [Femara 2.5 mg (*)] 2.5 mg PO DAILY 02/04/18 [Last Taken 02/04/18] Omeprazole 20 mg PO DAILY 02/04/18 [Last Taken 02/04/18] Ibrance 100 mg DAILY 06/15/18 [Last Taken Unknown] - Smoking Hx Smoking Status: Never smoked - Family Anes Hx Family Hx Anesthesia Complications: NONE ANE Labs/Vital Signs - Labs Result Diagrams: 06/22/18 11:35 06/22/18 11:35 - Vital Signs Height: 5 ft 4 in Weight: 68.039 kg ANE Physical Exam - Airway Neck exam: FROM Mallampati Score: Class 2 Mouth exam: normal dental/mouth exam - Cardiovascular Cardiovascular: regular rate and rhythym - ASA Status ASA Status: II ANE Anesthesia Plan Anesthesia Plan: MAC
[2018-06-22] MEDS ORDERED: fentaNYL 100 MCG/2 ML INJ ONE (12:12)
[2018-06-22] MEDS ORDERED: PROPOFOL/EMULSION 500 MG/50 ML BOTTLE IV ONE ×2 (12:12→13:23)
[2018-06-22] MEDS ORDERED: NS 1,000 ML IV ONE (12:49)
[2018-06-22] MEDS ORDERED: DEXAMETHASONE 10 MG/ML VIAL IVP ONE (12:49)
[2018-06-22] MEDS ORDERED: DEXAMETHASONE 10 MG/ML VIAL ONE (12:49)
[2018-06-22] MEDS ORDERED: BUPIVACAINE 0.5% 30 ML SDV ONE (13:09)
[2018-06-22] MEDS ORDERED: LIDOCAINE 1% 300 MG/30 ML SDV ONE (13:09)
[2018-06-22] MEDS ORDERED: ONDANSETRON DISINTEGRATING 4 MG TAB PO PRN (13:48)
[2018-06-22] MEDS ORDERED: ONDANSETRON 4 MG/2 ML VIAL IVP PRN (13:48)
--- NOTE | 2018-06-22 13:49 | PDRADPRE ---
Radiology History & Physical Indication for procedure: cancer (Painful spinal osseous metastasis T12. Plan for RFA and vertebroplasty) Home medications: Cholecalciferol Vit D3 [Vitamin D3 (*)] 2,000 units PO DAILY 11/23/14 [Last Taken 06/21/18] Levothyroxine [Synthroid 125 mcg (*)] 125 mcg PO DAILY06 11/23/14 [Last Taken ] [place]-3 Fatty Acids [Fish Oil 1000 mg (*)] 1,000 mg PO DAILY 11/23/14 [Last Taken 06/21/18] Potassium Chloride [K-Tab ER] 20 meq PO DAILY 11/23/14 [Last Taken 06/21/18] traZODone [traZODone 150MG (*)] 150 mg PO HS 11/23/14 [Last Taken 06/22/18 08:00 ] Letrozole [Femara 2.5 mg (*)] 2.5 mg PO DAILY 02/04/18 [Last Taken 06/21/18] Omeprazole 20 mg PO DAILY 02/04/18 [Last Taken 06/21/18] Ibrance 100 mg DAILY 06/15/18 [Last Taken 06/21/18] Allergies/Adverse Reactions: No Known Allergies Allergy (Verified 02/04/18 18:16) Mental status: A&Ox3 Heart exam: regular rate and rhythm Lungs exam: clear to auscultation Mallampati Score: Class 2
--- NOTE | 2018-06-22 13:50 | PDRADPN ---
Radiology Procedure Note Date of Procedure: 06/22/18 Radiologist: Jesus Cross Anesthesia: Other (Specify) (MAC) Pre-op Diagnosis: Breast CA Post-op Diagnosis: Breast CA Indication: Painful spinal osseous metastases Procedure: T12 RFA, vertebroplasty Finding(s): Successful T12 ablation and vertebroplasty Inf/Abcess present in the surg proc area at time of surgery?: No
[2018-06-22] MEDS ORDERED: NALOXONE HCL 0.4 MG/ML INJ IVP PRN (15:17)
--- NOTE | 2018-06-22 15:17 | POSTANESTH ---
Post Anesthetic Evaluation Cardiovascular Status: Normal, Stable Respiratory Status: Normal, Stable Level of Consciousness/Mental Status: Can Participate in Eval Pain Control: Adequate, Prn Tx Ordered Nausea/Vomiting Control: Adequate, Prn Tx Ordered Complications Possibly Related to Anesthesia: None Noted
[2018-06-22 15:51] VITALS: BP 135/80
== END 2018-06-22 16:14 | disposition home or self-care (01) ==
LOC: FSGY 11:02
PROVIDERS: ATTEND Radiology Vascular & Interventional Radiology
DX: C79.51 Secondary malignant neoplasm of bone (principal); C50.411 Malignant neoplasm of upper-outer quadrant of right female breast; Z96.642 Presence of left artificial hip joint
CPT/HCPCS: J1100; J2704; J3010

== ENCOUNTER → 2018-07-02 | Outpatient (CLI) | payer OTHER | LOC: FIMAGING 11:13 | PROVIDERS: ATTEND Internal Medicine Hematology & Oncology | DX: S22.080A Wedge compression fracture of T11-T12 vertebra, initial encounter for closed fracture (principal); C79.51 Secondary malignant neoplasm of bone; C50.919 Malignant neoplasm of unspecified site of unspecified female breast ==

== ENCOUNTER → 2018-07-21 | Outpatient (CLI) | payer OTHER | LOC: FIMAGING 12:54 | PROVIDERS: ATTEND Internal Medicine Hematology & Oncology | DX: C79.51 Secondary malignant neoplasm of bone (principal); C50.411 Malignant neoplasm of upper-outer quadrant of right female breast ==

== ENCOUNTER → 2018-07-22 | Outpatient (CLI) | payer OTHER | LOC: FIMAGING 06:57 | PROVIDERS: ATTEND Internal Medicine Hematology & Oncology | DX: C79.51 Secondary malignant neoplasm of bone (principal); C50.411 Malignant neoplasm of upper-outer quadrant of right female breast | CPT/HCPCS: 70553; A9585 ==

== ENCOUNTER → 2018-07-29 | Outpatient (CLI) | payer OTHER | LOC: FIMAGING 15:59 | PROVIDERS: ATTEND Internal Medicine Hematology & Oncology | DX: M51.36 Other intervertebral disc degeneration, lumbar region (principal); C50.411 Malignant neoplasm of upper-outer quadrant of right female breast; C79.51 Secondary malignant neoplasm of bone | CPT/HCPCS: 72158; A9585 ==

== ENCOUNTER → 2018-07-30 | Outpatient (CLI) | payer OTHER | LOC: FIMAGING 15:28 | PROVIDERS: ATTEND Internal Medicine Hematology & Oncology | DX: M79.605 Pain in left leg (principal); C50.411 Malignant neoplasm of upper-outer quadrant of right female breast ==

== ENCOUNTER → 2018-11-09 | Outpatient (CLI) | payer OTHER | LOC: FIMAGING 07:40 | PROVIDERS: ATTEND Nurse Practitioner | DX: Z08 Encounter for follow-up examination after completed treatment for malignant neoplasm (principal); C50.411 Malignant neoplasm of upper-outer quadrant of right female breast | CPT/HCPCS: 70553; A9585 ==

== ENCOUNTER → 2018-12-02 | Outpatient (CLI) | payer OTHER | LOC: FIMAGING 14:43 | PROVIDERS: ATTEND Nurse Practitioner | DX: R22.42 Localized swelling, mass and lump, left lower limb (principal); C50.411 Malignant neoplasm of upper-outer quadrant of right female breast ==